=== PATIENT | male | born 2000 | race Caucasian/White ===

== ENCOUNTER 2024-10-28 14:43 | Emergency (ER) | payer SELFPAY ==
[2024-10-28 14:49] VITALS: BP 143/80
--- NOTE | 2024-10-28 15:59 | ED.GENMED ---
History of Present Illness
<Florida Kelley PA-C - Last Filed: 10/28/24 22:30>
General
Chief Complaint: Skin Surface Trauma
Source: patient
Exam Limitations: none
Time Seen by Provider: 10/28/24 15:57
Nursing documentation reviewed up to this point in time: agreed with
History of Present Illness
History of Present Illness:
24 y/o male with past medical history of smoking presents emergency department today after accidentally stapling his finger while at work. 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 He states that
there are fresh duane. He states that he came to the emergency department immediately after it happened. He states that he has a lot of pain with flexion of his finger. He denies any other injuries. He states that he received his tetanus
within 5 years ago.
Past History
<Florida Kelley PA-C - Last Filed: 10/28/24 22:30>
Past History
ED Past Medical History: None
ED Past Surgical History: None
Social History
Tobacco: Smoker
Alcohol: None
Drug: Marijuana
Review of Systems
<AJIT Headley Last Filed: 10/28/24 22:30>
Review of Systems
All Other Systems: ROS reviewed and negative except as documented in HPI and ROS
Phy Exam
<Florida Kelley PA-C - Last Filed: 10/28/24 22:30>
Physical Exam
Physical Exam:
General: Patient is well appearing and in no acute distress; non-toxic
Skin: Warm and dry, no rashes or lesions, brisk capillary refill
Head: Normocephalic, atraumatic
Eyes: Sclera non-icteric. EOMs intact.
Cardiac: Regular rate
Pulm: Normal respiratory effort
Musculoskeletal: Staple embedded in the anterior aspect of the base of the index finger, full range of motion 5/5 strength
Neuro: CN II-XII intact, no focal neurologic deficits.
Psychiatric: Appropriate mood and affect.
Course
<Florida Kelley PA-C - Last Filed: 10/28/24 22:30>
Orders/Labs/Results
Orders:
Orders
10/28/24 16:23
CR Finger(s)/thumb Min 2 Vw Lt Urgent
Comment:
Reason For Exam: left first finger pain following foreign body eric
10/28/24 16:50
Cephalexin Monohydrate [Keflex] 500 mg PO NOW STA
Vital Signs
Initial and Last Documented VS:
Initial Vital Signs
Temp Pulse Resp BP Pulse Ox
97.9 F 75 20 143/80 99
10/28/24 14:49 10/28/24 14:49 10/28/24 14:49 10/28/24 14:49 10/28/24 14:49
Last Documented Vital Signs
Temp Pulse Resp BP Pulse Ox
97.9 F 75 20 143/80 99
10/28/24 14:49 10/28/24 14:49 10/28/24 14:49 10/28/24 14:49 10/28/24 14:49
<Lynn Gallagher MD - Last Filed: 10/28/24 16:45>
Orders/Labs/Results
Orders:
Orders
10/28/24 16:23
CR Finger(s)/thumb Min 2 Vw Lt Urgent
Comment:
Reason For Exam: left first finger pain following foreign body eric
10/28/24 16:50
Cephalexin Monohydrate [Keflex] 500 mg PO NOW STA
Vital Signs
Initial and Last Documented VS:
Initial Vital Signs
Temp Pulse Resp BP Pulse Ox
97.9 F 75 20 143/80 99
10/28/24 14:49 10/28/24 14:49 10/28/24 14:49 10/28/24 14:49 10/28/24 14:49
Last Documented Vital Signs
Temp Pulse Resp BP Pulse Ox
97.9 F 75 20 143/80 99
10/28/24 14:49 10/28/24 14:49 10/28/24 14:49 10/28/24 14:49 10/28/24 14:49
Procedures
<Florida Kelley PA-C - Last Filed: 10/28/24 22:30>
Foreign Body Removal-Skin
Wound explored and foreign body removed?: Yes
Anesthesia: 1% lidocaine
Foreign body removed using: forceps
Foreign body removed: completely
<Florida Kelley PA-C - Last Filed: 10/28/24 22:30>
MDM/Problems Addressed
Differential Diagnosis Includes:
ddx include foreign body, abrasion, laceration, neurovascular
MDM/Problems Addressed:
24-year-old male presents emergency department with staple embedded in his skin. He excellently stapled himself while at work. The foreign body was removed, patient tolerated the procedure well. Considering deep puncture wound, will start patient
on prophylactic antibiotics. Did obtain x-ray after the foreign body was removed which showed no foreign body, no osseous abnormality. Patient stable for discharge.
<Florida Kelley PA-C - Last Filed: 10/28/24 22:30>
*Critical Care Note
Total Time (30-74mins, 75-104mins- exclusive of procedures): Not Applicable
ED Attending Note
<Florida Kelley PA-C - Last Filed: 10/28/24 22:30>
-
Portions of this chart may have been created with voice recognition software.� Occasional wrong word or��sound alike� substitutions may have occurred due to the inherent limitations of voice recognition software.
<Lynn Gallagher MD - Last Filed: 10/28/24 16:45>
ED Attending Note
Patient seen and examined by attending physician: Yes
I performed the substantive portion of visit, reviewed & personally made and approve the management plan that is documented in note by myself or FLAQUITA.: Yes
ED Attending Note:
24 YR OLD MALE WHO ACCIDENTALLY SUFFERED AN INJURY TO L INDEX FINGER WITH STAPLE GUN. UTD ON TD. NO OTHER INJ. ON EXAM, (S/P REMOVAL), SMALL AREAS OF PUNCTURE SITE, NO ACTIVE BLEED, FROM, NO DRAINAGE OR OTHER ABNL, NO TTP WITH PALPATION. XRAY
UNREMARKABLE. PLAN IS D/C WITH WOUND CARE, PROPHYTLACTIC ABX AND DC.
Discharge Plan
Departure
Patient Disposition: Home (Routine Discharge)
Date of Disposition: 10/28/24
Time of Disposition: 17:03
Patient with high blood pressure during this ER visit?: Yes
Condition: Good
Discharge Problem:
Foreign body of finger, Puncture wound
Instructions: Wound Care (DC), BLOOD PRESSURE
Prescriptions:
New
cephalexin 500 mg capsule
500 mg PO TID 5 Days Qty: 15 0RF
No Action
oxycodone-acetaminophen 5 MG/325 MG tablet
1 tab PO Q6HPRN PRN (Reason: pain) Qty: 14 0RF
Referrals:
Vargas Crespo DO [Family Provider] -
Activity Restrictions/Additional Instructions:
Antibiotic has been sent to your pharmacy. Please take 1 tablet 3 times daily for 5 days to prevent any infection.
Please return to the emergency department should you experience fevers or chills, redness or swelling surrounding the wound, purulent drainage from the wound, nausea or vomiting, or any other signs or symptoms concerning to you.
Please follow-up with your primary care provider as needed.
Interventions
Interventions:
*Risk Screen - Suicide Last Done: 10/28/24 14:49
*General Assessment Last Done: 10/28/24 16:31
*Neglect/Abuse Screening Last Done: 10/28/24 14:49
ED- Fall Risk Assessment Last Done: 10/28/24 16:31
*ED COVID-19 Vaccine History Last Done: 10/28/24 16:31
*Nursing Disposition Last Done: 10/28/24 17:55
ED-Skin Assessment Last Done: 10/28/24 16:31
Discharge Date and Time
Discharge Date/Time: 10/28/24 17:55
Print Language: ITALIAN
--- NOTE | 2024-10-28 16:30 | EDRN ---
Viri YOO in to remove staple in proximal section of L index finger.
[2024-10-28 16:35] VITALS: BMI 23.8
[2024-10-28] MEDS: KEFLEX 500 MG PO (17:01)
== END 2024-10-28 17:55 | disposition home or self-care (01) ==
LOC: EMR 14:43
PROVIDERS: EMERGENCY PHYSICIAN Emergency Medicine; FAMILY PHYSICIAN Family Medicine
DX: S60.352A Superficial foreign body of left thumb, initial encounter (principal); W45.8XXA Other foreign body or object entering through skin, initial encounter; F17.200 Nicotine dependence, unspecified, uncomplicated
CPT/HCPCS: 99283; 10120; 73140